=== PATIENT | male | born 1935 | race Caucasian/White ===

== ENCOUNTER 2020-01-16 17:48 | Emergency (ER) | payer MEDICARE, BC ==
[~2020-01-16] VITALS: Ht 175.3 cm; Wt 73.5 kg
[2020-01-16 18:30] LABS: BASOPHILS % (AUTO) 0.3 % (0.0-2.0); EOSINOPHILS % (AUTO) 0.2 % (0.0-6.0); HEMATOCRIT 42 % (39-51); LYMPHOCYTES # (AUTO) 2.7 /CMM (0.8-4.8); LYMPHOCYTES % (AUTO) 36.4 % (20.0-44.0); MEAN CORPUSCULAR HGB CONC 34 g/dl (31.0-36.0); MEAN CORPUSCULAR VOLUME 92 fL (80-96); MONOCYTES # (AUTO) 0.7 /CMM (0.1-1.30); MONOCYTES % (AUTO) 9.8 % (2.0-12.0); NEUTROPHILS % (AUTO) 53.3 % (43.0-81.0); PLATELET COUNT (AUTO) 276 /CMM (150-450); RED BLOOD CELL COUNT(AUTO) 4.55 MIL/uL (4.5-6.0); WHITE BLOOD COUNT (AUTO) 7.5 K/uL (4.3-11.0)
--- NOTE | 2020-01-16 18:31 | NUR ---
[email or web address], from nursing home, c/o chest ache, non radiating 5/10 pain scale. PT AAOX4, VSS. RR EVEN & UNLABORED. DENIES CP, SOB, DIZZINESS, N/V, WEAKNESS AT THIS TIME. PT SEEN & EVAL'D BY DR. GAR. PLACED ON [employer], NSR. WILL CONT TO MONITOR.
[2020-01-16 18:43] LABS: ALANINE AMINOTRANSFERASE 19 U/L (12-78); ALBUMIN 3.6 g/dL (3.4-5.0); ALKALINE PHOSPHATASE 132 U/L (46-116); ASPARTATE AMINOTRANSFERASE 19 U/L (15-37); BILIRUBIN,DIRECT 0.2 mg/dL (0.0-0.2); BILIRUBIN,TOTAL 0.5 mg/dL (0.2-1.0)
[2020-01-16 19:01] LABS: CALCIUM, SERUM 10.1 mg/dL (8.5-10.1); POTASSIUM 4.3 mmol/L (3.5-5.1)
--- NOTE | 2020-01-16 19:53 | NUR ---
PT VSS, RR EVEN & UNLABORED. DENIES CP, SOB, DIZZINESS, N/V AT THIS TIME. ON TELE SR, NO ECTOPY NOTED. WILL CONT TO MONITOR.
--- NOTE | 2020-01-16 20:50 | NUR ---
YAYA STAHL (DAUGHTER) [phone]
--- NOTE | 2020-01-16 21:47 | NUR ---
[facility] ETA [id number]
--- NOTE | 2020-01-16 21:47 | NUR ---
Helga doty in [facility] - 01/16/20 at 2152 by JACOB [facility] ETA [id number]
--- NOTE | 2020-01-16 22:35 | NUR ---
IV removed. Catheter intact and site benign. Pressure and 4x4 applied to site. No bleeding noted.
--- NOTE | 2020-01-16 22:54 | NUR ---
Patient discharged to home in stable condition. Written and verbal after care instructions given. Patient verbalizes understanding of instruction. Pt enroute to [facility] via [facility].
[2020-01-16 22:55] VITALS: BP 142/89
== END 2020-01-16 22:56 ==
LOC: ER 17:48
DX: R07.89 Other chest pain (principal); G47.00 Insomnia, unspecified; R94.31 Abnormal electrocardiogram [ECG] [EKG]; Z90.89 Acquired absence of other organs
CPT/HCPCS: 36415; 71045-TC; 80048-TC; 80076-TC; 83690-TC; 84484-TC; 85025-TC